=== PATIENT | female | born 1945 | race Caucasian/White ===

== ENCOUNTER 2017-07-22 00:09 | Emergency (ER) | payer MEDICARE ==
[2017-07-22] MEDS ORDERED: Phenergan 25 MG INJ IM ONE (00:23)
[2017-07-22] MEDS ORDERED: Hydromorphone 1 mg/ml Ampule IM ONE (00:23)
--- NOTE | 2017-07-22 00:28 | ERPHSYRPT ---
- History of Present Illness Time Seen by Provider: 07/22/17 00:14 Source: patient Exam Limitations: no limitations Physician History: FOR THE PAST 2 DAYS PT'S CHRONIC PAIN FROM THE SHOULDERS TO THE FEET HAS WORSENED. PT DENIES ANY CHEST PAIN, SHORTNESS OF AIR, RECENT INJURY, VOMITING, DYSURIA, FEVER. Allergies/Adverse Reactions: latex Allergy (Verified 03/07/17 09:27) levofloxacin [From Levaquin] Allergy (Verified 03/07/17 09:27) zolpidem [From Ambien] Allergy (Verified 03/07/17 09:27) Home Medications: Allopurinol 300 mg [Zyloprim 300 mg] 300 mg PO DAILY 07/19/17 [History] Amlodipine Besylate 10 mg [Norvasc 10 MG] 10 mg PO DAILY 07/19/17 [History] Aspirin EC 81 mg [Ecotrin 81 mg] 81 mg PO DAILY 07/19/17 [History] B Infantis/B Ani/B Brenden/B Bifid [Probiotic 4X Caplet] 1 each PO HS 07/19/17 [ History] Baclofen 10 mg [Lioresal 10 mg] 10 mg PO BID 07/19/17 [History] Celecoxib [Celebrex] 200 mg PO DAILY 07/19/17 [History] Donepezil HCl 10 mg [Aricept 10 MG] 10 mg PO DAILY 07/19/17 [History] Furosemide [Lasix] 40 mg PO BID 07/19/17 [History] Gabapentin [Neurontin] 600 - 1,200 mg PO UD 07/19/17 [History] Levothyroxine Sodium 50 Mcg [Synthroid 50 Mcg] 50 mcg PO DAILY 07/19/17 [ History] Multivit with Minerals/Lutein [Cerovite Senior Tablet] 1 each PO DAILY 07/19/17 [History] Febuxostat [Uloric] 40 mg PO DAILY 07/22/17 [History] Hydrocodone/Acetaminophen [Hydrocodone-Acetamin 5-325 mg] 1 tab PO BID 07/22/17 [History] Omeprazole [Omeprazole] 40 mg PO DAILY 07/22/17 [History] Potassium Chloride 20 Meq [Klor-Con 20 MEQ] 20 meq PO BID 07/22/17 [History] Trazodone HCl 50 mg [Desyrel 50 mg] 50 mg PO DAILY 07/22/17 [History] - Review of Systems Constitutional: No Fever Respiratory: No Dyspnea Cardiac: No Chest Pain Abdominal/Gastrointestinal: No Vomiting Genitourinary Symptoms: No Dysuria Musculoskeletal: Arthralgias All Other Systems: Reviewed and Negative - Nursing Vital Signs Nursing Vital Signs: Initial Vital Signs Temperature 96.5 F 07/22/17 00:13 Pulse Rate 116 H 07/22/17 00:13 Blood Pressure 100/71 07/22/17 00:13 O2 Sat by Pulse Oximetry 95 07/22/17 00:13 Pain Scale Pain Intensity [Upper 10 Generalized] Pain Intensity 10 - Physical Exam General Appearance: mild distress, alert Eye Exam: PERRL/EOMI Ears, Nose, Throat Exam: pharynx normal Neck Exam: normal inspection Respiratory Exam: lungs clear Cardiovascular Exam: normal heart sounds Gastrointestinal/Abdomen Exam: soft, normal bowel sounds Back Exam: No vertebral tenderness Extremity Exam: No pedal edema Neurologic Exam: alert, cooperative, sensation nml, No motor weakness Skin Exam: warm, dry - Course Nursing assessment & vital signs reviewed: Yes Ordered Tests: Medication Summary Discontinued Medications Generic Name Dose Route Start Last Admin Trade Name Christopher PRN Reason Stop Dose Admin Hydromorphone HCl 2 mg 07/22/17 00:23 07/22/17 00:43 Hydromorphone 1 Mg/Ml Ampule IM 07/22/17 00:24 2 mg STAT ONE Administration Hydromorphone HCl Confirm 07/22/17 00:40 Dilaudid 2 Mg Injection Administered 07/22/17 00:41 Dose 2 mg .ROUTE .STK-MED ONE Promethazine HCl 25 mg 07/22/17 00:23 07/22/17 00:45 Phenergan 25 Mg Inj IM 07/22/17 00:24 25 mg STAT ONE Administration Promethazine HCl Confirm 07/22/17 00:40 Phenergan 25 Mg Inj Administered 07/22/17 00:41 Dose 25 mg .ROUTE .STK-MED ONE - Departure Time of Disposition: 01:45 Departure Disposition: Home Clinical Impression: EXACERBATION OF CHRONIC PAIN Condition: Stable Critical Care Time: No Referrals: HERSON ABDULLAHI [Primary Care Provider] - Instructions: Chronic Pain (DC) Additional Instructions: FOLLOW UP WITH PRIVATE DOCTOR TOMORROW.
[2017-07-22] MEDS ORDERED: Phenergan 25 MG INJ ONE (00:40)
[2017-07-22] MEDS ORDERED: DILAUDID 2 MG INJECTION ONE (00:40)
[2017-07-22 01:47] VITALS: BP 104/74; PULSE 72; O2SAT 88
== END 2017-07-22 02:43 | disposition home or self-care (01) ==
LOC: ED 00:09
DX: G89.29 Other chronic pain (principal); Z79.899 Other long term (current) drug therapy
CPT/HCPCS: 96372; 99284; J1170; J2550